=== PATIENT | male | born 1990 | race Caucasian/White ===

== ENCOUNTER → 2021-07-25 | Outpatient (REF) | payer OTHER ==
[2021-07-26 17:07] LABS: TESTOSTERONE FREE (DIRECT) 10.3 pg/mL (8.7-25.1)
== END ==
LOC: M LAB REF 12:04
PROVIDERS: ATTEND Internal Medicine
DX: R68.82 Decreased libido (principal)

== ENCOUNTER → 2022-06-03 | Outpatient (CLI) | payer OTHER ==
[~2022-06-03] MED LIST: TEST200I14 IM; VENTAER INH
== END ==
LOC: M LABSMTC 08:49
PROVIDERS: ATTEND Anesthesiology
DX: Z01.818 Encounter for other preprocedural examination (principal)

== ENCOUNTER 2022-06-08 08:53 | Day surgery (SDC) | payer OTHER ==
[~2022-06-08] VITALS: Ht 175.3 cm; Wt 93.4 kg
[~2022-06-08 08:53] MED LIST changes: +NS 1,000 ML IV ONE
[2022-06-08] MEDS ORDERED: propofoL 200 MG/20 ML VIAL As Ordered ONE (10:45)
[2022-06-08] MEDS ORDERED: fentaNYL 100 MCG/2 ML INJECTION As Ordered ONE (10:45)
[2022-06-08] MEDS ORDERED: LIDOCAINE 2% 100MG/5ML SDV (FOR ANES.) As Ordered ONE (10:45)
[2022-06-08 11:45] VITALS: BP 148/68
== END 2022-06-08 11:54 | disposition home or self-care (01) ==
LOC: M OPP 08:53
PROVIDERS: ATTEND Internal Medicine Gastroenterology
DX: K64.0 First degree hemorrhoids (principal); K63.5 Polyp of colon; K44.9 Diaphragmatic hernia without obstruction or gangrene; K21.00 Gastro-esophageal reflux disease with esophagitis, without bleeding; J45.909 Unspecified asthma, uncomplicated; Z95.1 Presence of aortocoronary bypass graft; Z79.899 Other long term (current) drug therapy
CPT/HCPCS: 43239; 45378; 88305; J3010